=== PATIENT | male | born 1990 ===

== ENCOUNTER 2018-03-07 17:30 | Inpatient (IN) ==
[~2018-03-07 17:30] MED LIST: Etomidate Inj 20 MG/10 ML Ampul IV.PUSH ONE; Lidocaine 2% 100 MG/5 ML Syringe IV.PUSH ONE; Succinylcholine Inj 100 MG/5 ML Syringe IV.PUSH ONE
[2018-03-07] MEDS ORDERED: Diphtheria/Tetanus/Pertussis Vaccine Inj 0.5 ML Syringe IM ONE ×2 (17:35→20:00)
[2018-03-07] MEDS ORDERED: Propofol 1000 mg/100 ml Inj 1,000 MG/100 ML BOTTLE ONE (17:35)
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
[2018-03-07] MEDS ORDERED: Midazolam Inj 5 MG/ML 1 ML Vial ONE ×2 (17:56→18:41)
[2018-03-07 18:03] LABS: Baso # (Auto) 0.1 th/mm3 (0.0-0.2); Baso % (Auto) 0.6 % (0.0-2.0); Eos # (Auto) 0.1 th/mm3 (0.0-0.4); Eos % (Auto) 0.4 % (0.0-4.0); Hematocrit 50.6 % (39.0-51.0); Hemoglobin 17.2 gm/dL (13.0-17.0); Lymph # (Auto) 4.1 th/mm3 (1.0-4.8); Lymph % (Auto) 23.7 % (9.0-44.0); Mean Corpuscular HGB Conc 33.9 % (32.0-36.0); Mean Corpuscular Hemoglobin 33.3 pg (27.0-34.0); Mean Corpuscular Volume 98.1 fL (80.0-100.0); Mean Platelet Volume 8.2 fL (7.0-11.0); Mono # (Auto) 0.3 th/mm3 (0.0-0.9); Mono % (Auto) 1.9 % (0.0-8.0); Neut # (Auto) 12.7 th/mm3 (1.8-7.7); Neut % (Auto) 73.4 % (16.0-70.0); Platelet Count 201 th/mm3 (150-450); Red Blood Count 5.16 mil/mm3 (4.50-5.90); Red Cell Distribution Width 13.9 % (11.6-17.2); White Blood Count 17.3 th/mm3 (4.0-11.0)
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
[2018-03-07] MEDS ORDERED: Sodium Bicarbonate 8.4% Inj 50 MEQ/50 ML Syringe ONE (18:40)
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
[2018-03-07 19:02] LABS: Activated Partial Thrombo Time 25.3 sec (24.3-30.1); INR 1.2 Ratio
[2018-03-07 19:03] LABS: ABG Base Excess -11.6 mmol/L (-2-2); ABG PCO2 33 mmHg (38-42); ABG PO2 434 mmHg (61-120)
[2018-03-07] MEDS ORDERED: Bisacodyl 10 MG Supp RECTAL PRN (19:05)
[2018-03-07] MEDS ORDERED: Propofol 1000 mg/100 ml Inj 1,000 MG/100 ML BOTTLE IV.CONT PRN (19:05)
--- NOTE | 2018-03-07 19:12 | XR ---
EXAM DATE: 03/07/2018 6:40 PM EDT AGE/SEX: 89 years / Male INDICATIONS: Central line placement. CLINICAL DATA: This is the patient's subsequent encounter. Patient reports that signs and symptoms h ave been present for 1 day and indicates a pain score of Nonresponsive. MEDICAL/SURGICAL HISTORY: Non-responsive. Non-responsive. COMPARISON: [facility], CHEST 1V SINGLE AP, 03/07/2018. . FINDINGS: Stable ETT. Interval placement of left subclavian central line with tip in the central SVC. No signif icant pneumothorax. Lungs are clear. Cardiomediastinal contours are within normal limits. Remainder o f the exam is unchanged. CONCLUSION: 1. Stable ETT. 2. Left subclavian central line with tip in the central SVC without pneumothorax. Electronically signed by: Buddy Benitez MD 03/07/2018 7:11 PM EDT
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
[2018-03-07] MEDS ORDERED: ceFAZolin 2 GM Premix Inj 2 GM/100 ML BAG IV.SIG ONE (20:00)
[2018-03-07] MEDS: Sod Chloride 0.9% Inj 1,000 ML IV.CONT SCH (20:05)
[2018-03-07] MEDS: fentaNYL 10 mcg/mL Premix Drip 2,500 MCG/250 ML BAG IV.SIG PRN (20:06)
[2018-03-07 20:11] LABS: Eosinophils 2 % (0-4); Lymphocytes 34 % (9-44); Monocytes 3 % (0-8); Myelocytes 1 % (0-0)
[2018-03-07 20:12] LABS: Platelet Morphology Clumped (Normal)
[2018-03-07 20:16] LABS: Platelet Estimate Normal (Normal)
[2018-03-07] MEDS: Midazolam 50 MG/50 ML Inj 50 MG/50 ML BAG IV.CONT PRN (20:18)
[2018-03-07 20:36] LABS: ABG PCO2 35 mmHg (38-42); ABG PO2 234 mmHg (61-120)
[2018-03-07] MEDS ORDERED: Famotidine 20 MG Tablet PO SCH ×2 (21:00)
[2018-03-07] MEDS ORDERED: Famotidine PF Inj 20 MG/2 ML Vial IV.PUSH SCH (21:00)
[2018-03-07] MEDS ORDERED: Norepinephrine Inj 4 MG/4 ML Ampul ONE (21:18)
[2018-03-07] MEDS ORDERED: Norepinephrine Inj 4 MG in Sodium Chlor 0.9% Inj 246 ML IV.SIG PRN (21:31)
[2018-03-07] MEDS: Pantoprazole Inj 40 MG Vial IV.PUSH SCH (21:59)
[2018-03-07] MEDS ORDERED: Albumin Human 5% Inj 500 ML IV.SIG ONE (22:00)
[2018-03-07] MEDS: Senna/Docusate Sodium 8.6/50 MG Tablet PO SCH (22:01)
[2018-03-07] MEDS ORDERED: Sod Chloride 0.9% Inj 1,000 ML IV.SIG ONE (22:15)
[2018-03-07 22:34] LABS: Hematocrit 45.3 % (39.0-51.0); Hemoglobin 15.4 gm/dL (13.0-17.0)
[2018-03-07 22:55] LABS: Amphetamine Screen,Urine Neg (Neg); Barbiturate Screen,Urine Neg (Neg); Cannabinoid Screen,Urine Pos (Neg); Cocaine Screen,Urine Neg (Neg)
[2018-03-07 22:58] LABS: Opiate Screen,Urine Neg (Neg)
[2018-03-07 23:00] LABS: Bilirubin,Urine Negative (Negative); Clarity,Urine Clear (Clear); Color,Urine Straw (Yellw/Straw); Glucose,Urine (UA) 50 mg/dL (Negative); Hyaline Casts,Urine 1 /lpf (0-3); Leukocyte Esterase,Urine Negative (Negative); Mucus,Urine Few /lpf (Occasional); Nitrite,Urine Negative (Negative); Specific Gravity,Urine 1.019 (1.002-1.035); Squamous Epithelial Cell,Urine <1 /hpf (0-5)
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
[2018-03-08] MEDS: Sod Chloride 0.9% Inj 1,000 ML IV.CONT SCH ×2 (02:30→05:07)
[2018-03-08] MEDS ORDERED: Chlorhexidine Gluconate 2% 1 Pack (2 Cloths) TOPICAL PRN (04:00)
[2018-03-08] MEDS: Chlorhexidine Gluconate 2% 1 Pack (2 Cloths) TOPICAL SCH (04:29)
[2018-03-08] MEDS: Midazolam 50 MG/50 ML Inj 50 MG/50 ML BAG IV.CONT PRN ×3 (04:32→19:51)
[2018-03-08 05:39] LABS: Baso % (Auto) 0.2 % (0.0-2.0); Hematocrit 40.1 % (39.0-51.0); Hemoglobin 13.5 gm/dL (13.0-17.0); Lymph % (Auto) 7.1 % (9.0-44.0); Mean Corpuscular HGB Conc 33.7 % (32.0-36.0); Mean Corpuscular Hemoglobin 31.6 pg (27.0-34.0); Mean Corpuscular Volume 93.7 fL (80.0-100.0); Mean Platelet Volume 7.7 fL (7.0-11.0); Mono # (Auto) 1.6 th/mm3 (0.0-0.9); Mono % (Auto) 11.7 % (0.0-8.0); Platelet Count 215 th/mm3 (150-450); Red Blood Count 4.28 mil/mm3 (4.50-5.90); Red Cell Distribution Width 16.3 % (11.6-17.2); White Blood Count 13.6 th/mm3 (4.0-11.0)
[2018-03-08 05:56] LABS: ABG Base Excess -2.6 mmol/L (-2-2); ABG PCO2 36 mmHg (38-42); ABG PO2 77 mmHg (61-120)
[2018-03-08 06:14] LABS: Calcium 6.5 mg/dL (8.5-10.1); Carbon Dioxide 23.7 meq/L (21.0-32.0); Potassium 3.3 meq/L (3.5-5.1)
[2018-03-08 06:25] LABS: Total Protein 5.4 g/dL (6.4-8.2)
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
--- NOTE | 2018-03-08 09:44 | CT ---
EXAM DATE: 03/08/2018 9:37 AM EDT AGE/SEX: 89 years / Male INDICATIONS: Right hip fracture CLINICAL DATA: This is the patient's initial encounter. Patient reports that signs and symptoms have been present for 1 day and indicates a pain score of Nonresponsive. MEDICAL/SURGICAL HISTORY: Non-responsive. Non-responsive. RADIATION DOSE: . CTDI (mGy) ; Reconstructed from previous dataset, no dose COMPARISON: [facility] [place], CT ABDOMEN & PELVIS W CONTRAST, 03/07/2018. . TECHNIQUE: Multiple contiguous axial images were acquired using a multirow detector CT scanner witho ut contrast. Multiplanar reconstruction was performed in the sagittal and coronal planes. Using aut omated exposure control and adjustment of the mA and/or kV according to patient size, radiation dose was kept as low as reasonably achievable to obtain optimal diagnostic quality images. DICOM format i mage data is available electronically for review and comparison. FINDINGS: There is diastases of the right SI joint with a displaced fracture, comminuted of the posterior right iliac bone at the SI joint. This is seen best on axial image 16 through 20. There is a comminuted ac [place] displaced fracture left superior pubic ramus as well as a slightly displaced fracture of the infe rior pubic ramus on the left. Heavily comminuted fracturing of the acetabulum on the right is seen wi th multiple displaced fracture fragments. There is a hematoma along the right pelvic sidewall again s een. CONCLUSION: 1. Numerous pelvic fractures are noted as described above. Electronically signed by: Jj Quijano MD 03/08/2018 9:43 AM EDT
[2018-03-08] MEDS: Senna/Docusate Sodium 8.6/50 MG Tablet PO SCH ×2 (13:00→21:20)
[2018-03-08] MEDS: Oral Hygiene Kit OROPHARYNG SCH ×2 (13:01→19:45)
[2018-03-08] MEDS: Chlorhexidine 0.12% Oral Kit 15 ML UDC OROPHARYNG SCH ×2 (13:36→21:20)
[2018-03-08] MEDS: fentaNYL 10 mcg/mL Premix Drip 2,500 MCG/250 ML BAG IV.SIG PRN ×2 (13:40→21:43)
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
--- NOTE | 2018-03-08 16:06 | P.PNNS ---
Subjective Interval history: 03/08: intubated, mildly sedated but does open eyes. <Yolanda Fajardo - Last Filed: 03/08/18 16:01> Physical Exam Vital signs: Vital Signs 03/07/18 19:08 03/07/18 20:00 03/07/18 20:36 Temperature 100.2 F H Pulse Rate 132 H Respiratory Rate 32 H 19 16 Blood Pressure 114/52 L Pulse Oximetry 99 100 03/07/18 22:00 03/07/18 22:22 03/08/18 00:00 Temperature 100.2 F H Pulse Rate 124 H 136 H Respiratory Rate 16 16 Blood Pressure 108/66 Pulse Oximetry 100 100 03/08/18 01:51 03/08/18 02:00 03/08/18 04:00 Temperature 100.2 F H Pulse Rate 128 H 126 H Respiratory Rate 16 16 Blood Pressure 136/90 Pulse Oximetry 100 100 03/08/18 04:15 03/08/18 06:00 03/08/18 08:00 Temperature 99.7 F H Pulse Rate 135 H 128 H Respiratory Rate 16 16 Blood Pressure 135/85 Pulse Oximetry 94 L 100 03/08/18 08:43 03/08/18 09:00 03/08/18 10:00 Temperature Pulse Rate 128 H 130 H Respiratory Rate 16 Blood Pressure Pulse Oximetry 100 03/08/18 11:45 03/08/18 12:00 Temperature 99.7 F H Pulse Rate 119 H 122 H Respiratory Rate 16 18 Blood Pressure 140/90 Pulse Oximetry 100 100 Intake & Output 03/07/18 03/08/18 03/08/18 18:59 06:59 18:59 Intake Total 3500 / 3500 250 / 250 Output Total 1775 / 1775 Balance 1725 / 1725 250 / 250 Weight 73.1 kg Intake: IV 3500 / 3500 250 / 250 NS Inj 1,000 ML @ 150 mls/hr IV 1999 / 1999 .CONT .Q6H40M [facility] Rx#:[id number] Alburx 5% Inj 500 ML @ 250 mls/ 500 / 500 hr IV.SIG NOW ONE Rx#:[id number] NS Inj 1,000 ML @ 999 mls/hr IV 1000 / 1000 .SIG .Q1H1M ONE Rx#:[id number] fentaNYL 10 mcg/mL Premix Drip 250 / 250 2,500 mcg In 250 ml @ 50 MCG/HR 5 mls/hr IV.SIG TITRATE PRN Rx #:[id number] Output: Urine Amount (Catheter) 1475 / 1475 Indwelling Temp Sensing 1475 / 1475 Catheter Gastric Drainage 300 / 300 Orogastric Tube 300 / 300 Other: Weight On Admission 73.1 kg Narrative: GENERAL: Intubated SKIN: Warm and dry. Multiple skin abrasions HEAD: Normocephalic, traumatic injuries with dressing EYES: No scleral icterus. No injection or drainage. NECK: Supple, trachea midline. No JVD or lymphadenopathy. CARDIOVASCULAR: Regular rate and rhythm without murmurs, gallops, or rubs. RESPIRATORY: mechanically ventilated GASTROINTESTINAL: Abdomen soft, non-tender, nondistended. MUSCULOSKELETAL: No cyanosis, or edema. BACK: Nontender without obvious deformity. No CVA tenderness. Neuro: sedated on versed and fentanyl drips. pupils equal. not following commands to motor testing but responds to pain stimuli. - Urinary Catheter Management Indwelling Temp Sensing Catheter Cath placed during this visit: yes Reason for continuing: Other continuation reason Insertion date: 03/07/18 <Yolanda Fajardo - Last Filed: 03/08/18 16:01> Vital signs: Vital Signs 03/07/18 19:08 03/07/18 20:00 03/07/18 20:36 Temperature 100.2 F H Pulse Rate 132 H Respiratory Rate 32 H 19 16 Blood Pressure 114/52 L Pulse Oximetry 99 100 03/07/18 22:00 03/07/18 22:22 03/08/18 00:00 Temperature 100.2 F H Pulse Rate 124 H 136 H Respiratory Rate 16 16 Blood Pressure 108/66 Pulse Oximetry 100 100 03/08/18 01:51 03/08/18 02:00 03/08/18 04:00 Temperature 100.2 F H Pulse Rate 128 H 126 H Respiratory Rate 16 16 Blood Pressure 136/90 Pulse Oximetry 100 100 03/08/18 04:15 03/08/18 06:00 03/08/18 08:00 Temperature 99.7 F H Pulse Rate 135 H 128 H Respiratory Rate 16 16 Blood Pressure 135/85 Pulse Oximetry 94 L 100 03/08/18 08:43 03/08/18 09:00 03/08/18 10:00 Temperature Pulse Rate 128 H 130 H Respiratory Rate 16 Blood Pressure Pulse Oximetry 100 03/08/18 11:45 03/08/18 12:00 Temperature 99.7 F H Pulse Rate 119 H 122 H Respiratory Rate 16 18 Blood Pressure 140/90 Pulse Oximetry 100 100 Intake & Output 03/07/18 03/08/18 03/08/18 18:59 06:59 18:59 Intake Total 3500 / 3500 250 / 250 Output Total 1775 / 1775 Balance 1725 / 1725 250 / 250 Weight 73.1 kg Intake: IV 3500 / 3500 250 / 250 NS Inj 1,000 ML @ 150 mls/hr IV 1999 / 1999 .CONT .Q6H40M [facility] Rx#:[id number] Alburx 5% Inj 500 ML @ 250 mls/ 500 / 500 hr IV.SIG NOW ONE Rx#:[id number] NS Inj 1,000 ML @ 999 mls/hr IV 1000 / 1000 .SIG .Q1H1M ONE Rx#:[id number] fentaNYL 10 mcg/mL Premix Drip 250 / 250 2,500 mcg In 250 ml @ 50 MCG/HR 5 mls/hr IV.SIG TITRATE PRN Rx #:[id number] Output: Urine Amount (Catheter) 1475 / 1475 Indwelling Temp Sensing 1475 / 1475 Catheter Gastric Drainage 300 / 300 Orogastric Tube 300 / 300 Other: Weight On Admission 73.1 kg Narrative: The patient is intubated and sedated. Localizes to painful stimuli with his upper extremities. Cranial Nerves: Pupils equal, 3 mm round, reactive to light. Eyes appear conjugated. There was no nystagmus, no papilledema. Face musculature appeared symmetrical at rest. Face sensation, olfaction, and hearing cannot be adequately assessed due to the patient's neurological condition. The patient has a corneal reflex. The patient has a gag reflex. The sternocleidomastoid and trapezius were symmetrical. Cervical Spine: The patient's neck is soft, supple, without nuchal rigidity. Motor: localizes to pain with both upper extremities, splint in his left lower extremity Reflexes: Deep tendon reflexes are 2+ and symmetrical in the biceps, triceps, and brachioradialis, bilaterally, in the upper extremities. In the lower extremities, the patellar and ankles are 2+, bilaterally. There is a bilateral plantar flexion response. There is no clonus or other abnormal reflexes noted. Sensory: On examination there there is response to painful stimuli, localizing with both upper and lower extremities. Cerebellar: Examination cannot be adequately assessed due to the patient's neurological condition. Lungs: clear Heart: Regular rhythm and rate Skin: warm and dry - Urinary Catheter Management Indwelling Temp Sensing Catheter Cath placed during this visit: no <Shukri Vieyra - Last Filed: 03/08/18 17:38> Assessment and Plan - Plan Impression: young adult male with closed head injury Face CT 03/07/18 17:39 CONCLUSION: 1. Acute fractures involving the right zygomatic arch, squamous portion of the right temporal bone and fracture involving the base of the pterygoid plates on the right. There is opacification of the right sphenoid sinus and small fluid level within left maxillary sinus. Minimal pneumocephalus is noted within the anterior middle cranial fossa on the right. Head CT 03/07/18 17:39 CONCLUSION: 1. No acute intracranial abnormality. 2. There is no acute fracture involving the right zygomatic arch. 3. Subgaleal hematoma along the right frontoparietal skull. 4. Opacification of the right sphenoid sinus is noted. 5. Small fluid level is noted within the left maxillary sinus. Lumbar Spine CT 03/07/18 17:39 CONCLUSION: 1. No acute fracture or spinal listhesis of the lumbar spine. 2. Acute comminuted fracture involving the right iliac bone with widening of the right sacroiliac joint. 3. Tiny 2 mm calcified nonobstructing mid pole left renal calculus. Thoracic Spine CT 03/07/18 17:39 CONCLUSION: 1. No acute fracture or subluxation of the thoracic spine. Plan: nonsurgical management close neuro checks cont critical care management sedation and vent weaning as tolerated OMFS for facial fractures <Yolanda Fajardo - Last Filed: 03/08/18 16:01> - Plan Young male with Left temporoparietal subarachnoid hemorrhage Right zygoma and temporal bone fracture with pneumocephalus Sphenoid fracture Right hepatic lobe grade 3 laceration with a large hematoma Right adrenal contusion and retroperitoneal bleeding in the infra hepatic vena cava area Right comminuted acetabular fracture Left hip dislocation with closed reduction Bilateral superior and inferior comminuted displaced rami pubis fractures Right iliac fracture disassociation of sacroiliac joint Left temporoparietal subarachnoid hemorrhage. Continue neuro checks. Follow up CT brain or MRI Right zygoma and temporal bone fracture with pneumocephalus. HOB elevation 30 degrees. Watch for CSF leak Sphenoid fracture. Non operative treatment. Watch for CSF leak Right hepatic lobe grade 3 laceration with a large hematoma. FOllow up H and H. Transfuse as needed Right adrenal contusion and retroperitoneal bleeding in the infra hepatic vena cava area. FOllow up H and H. Transfuse as needed\ Right comminuted acetabular fracture. Left hip dislocation with closed reduction. Defer to orthopedics Bilateral superior and inferior comminuted displaced rami pubis fractures. FOllow up H and H. Transfuse as needed Right iliac fracture disassociation of sacroiliac joint. Consult orthopedcs Respiratory failure: Continue aggressive pulmonary toilette, nasotracheal suction, and breathing treatments with nebulizers. PT and OT Renal: Continue to monitor closely urine output, BUN and creatinine Endocrine: Continue to Monitor serial Acu checks and SSI as needed in detail ID continue to monitor for signs of infection Continue Protonix for stress ulcer prophylaxis Continue Paul hose and SCD's for DVT prophylaxis Further recommendations will be provided depending on the patient's clinical evaluation and follow up studies. The exam, history, and the medical decision-making described in the above note were completed with the assistance of the mid-level provider. I reviewed and agree with the findings presented. I attest that I had a [id number] encounter with the patient on the same day, and personally performed and documented my assessment and findings in the medical record. <Shukri Vieyra - Last Filed: 03/08/18 17:38> Procedures - Arterial Line Size (Gauge): 18 <Yolanda Fajardo - Last Filed: 03/08/18 16:01>
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
[2018-03-08] MEDS ORDERED: Lidocaine 1% Inj 50 ML Vial ONE (17:04)
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
[2018-03-08 18:40] LABS: Hemoglobin 13.3 gm/dL (13.0-17.0)
[2018-03-08] MEDS ORDERED: Magnesium Sulfate Inj 4 GM in Sodium Chlor 0.9% Inj 92 ML IV.SIG PRN (20:41)
[2018-03-08] MEDS ORDERED: Potassium Chloride 25 MEQ Effervescent Tablet PO PRN (20:41)
[2018-03-08] MEDS ORDERED: Magnesium Oxide 400 MG Tablet PO PRN (20:41)
[2018-03-08] MEDS ORDERED: Magnesium Sulfate Inj 2 GM in Sodium Chlor 0.9% Inj 96 ML IV.SIG PRN (20:41)
[2018-03-08] MEDS ORDERED: Potassium Chlor 40 mEq Premix 40 MEQ/100 ML PIGGYBACK IV.SIG PRN (20:41)
[2018-03-08] MEDS ORDERED: Sodium Phosphate Inj 30 MMOL in Sodium Chlor 0.9% Inj 250 ML IV.SIG PRN (20:41)
[2018-03-08] MEDS ORDERED: Potassium Phosphate 500 MG Soluble Tablet PO PRN ×2 (20:41)
[2018-03-08] MEDS ORDERED: Potassium Chlor 20 mEq Premix 20 MEQ/100 ML PIGGYBACK IV.SIG PRN ×2 (20:41)
[2018-03-08] MEDS ORDERED: Potassium Phosphate Inj 30 MMOL in Sodium Chlor 0.9% Inj 250 ML IV.SIG PRN (20:41)
[2018-03-08] MEDS: Pantoprazole Inj 40 MG Vial IV.PUSH SCH (21:20)
--- NOTE | 2018-03-08 21:28 | ECG ---
Date Performed: 03/07/2018 Time Performed: 20:33:58 PTAGE: 89 years EKG: Sinus tachycardia. Short DE interval Borderline ECG NO PREVIOUS TRACING DOCTOR: Thompson Brice Interpretating Date/Time 03/08/2018 21:27:32
[2018-03-08] MEDS: Potassium Chlor 40 mEq Premix 40 MEQ/100 ML PIGGYBACK IV.SIG PRN (21:41)
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
[2018-03-09] MEDS: Oral Hygiene Kit OROPHARYNG SCH ×3 (00:02→18:20)
[2018-03-09] MEDS: Chlorhexidine Gluconate 2% 1 Pack (2 Cloths) TOPICAL SCH (03:33)
[2018-03-09] MEDS: Midazolam 50 MG/50 ML Inj 50 MG/50 ML BAG IV.CONT PRN ×3 (03:33→20:02)
--- NOTE | 2018-03-09 03:50 | XR ---
EXAM DATE: 03/09/2018 3:45 AM EDT AGE/SEX: 89 years / Male INDICATIONS: Shortness of breath CLINICAL DATA: This is the patient's subsequent encounter. Patient reports that signs and symptoms h ave been present for 2 days and indicates a pain score of Nonresponsive. MEDICAL/SURGICAL HISTORY: Non-responsive. Non-responsive. COMPARISON: [facility] – [place], CHEST 1V SINGLE AP, 03/07/2018. . FINDINGS: Patchy parenchymal consolidation developing of the right base. Left lung remains clear. No pleural ef fusion or pneumothorax demonstrated. Heart size stable, within normal limits. Endotracheal tube tip is approximately 4.3 cm above the harsha. Nasogastric tube has its tip in the s tomach, sidehole near the GE junction. There is a left subclavian central venous catheter with tip in the superior vena cava. CONCLUSION: Patchy parenchymal consolidation developing of the right base. Electronically signed by: Sridhar Slater MD 03/09/2018 3:48 AM EDT
[2018-03-09 05:24] LABS: Baso % (Auto) 0.2 % (0.0-2.0); Eos % (Auto) 0.1 % (0.0-4.0); Hematocrit 34.5 % (39.0-51.0); Hemoglobin 11.7 gm/dL (13.0-17.0); Lymph # (Auto) 1.1 th/mm3 (1.0-4.8); Lymph % (Auto) 8.7 % (9.0-44.0); Mean Corpuscular Volume 93.9 fL (80.0-100.0); Mean Platelet Volume 7.8 fL (7.0-11.0); Neut # (Auto) 10.3 th/mm3 (1.8-7.7); Platelet Count 164 th/mm3 (150-450); Red Blood Count 3.67 mil/mm3 (4.50-5.90); Red Cell Distribution Width 15.8 % (11.6-17.2); White Blood Count 12.4 th/mm3 (4.0-11.0)
[2018-03-09 05:53] LABS: Calcium 7.6 mg/dL (8.5-10.1); Carbon Dioxide 27.9 meq/L (21.0-32.0)
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
[2018-03-09] MEDS: Chlorhexidine 0.12% Oral Kit 15 ML UDC OROPHARYNG SCH ×2 (09:43→20:02)
[2018-03-09] MEDS: Senna/Docusate Sodium 8.6/50 MG Tablet PO SCH (09:45)
[2018-03-09] MEDS: fentaNYL 10 mcg/mL Premix Drip 2,500 MCG/250 ML BAG IV.SIG PRN ×2 (10:10→21:16)
--- NOTE | 2018-03-09 11:27 | P.DIET ---
Nutritional Evaluation Type of nutrition evaluation: initial Nutrition consult regarding: Tube Feeding Objective - Diagnosis Liver laceration, pelvic fx, subarachnoid hemorrhage - Objective % IBW: 115 (IBW = 142#) Body Weight Used for Calculations: Actual (74.6 kg) Energy Needs - Lower Range (kCal/kg): 28 Energy Needs - Upper Range (kCal/kg): 32 Lower Limit kCal/kg (kCals): 2,089 Upper Limit kCal/kg (kCals): 2,387 Lower Limit Protein Factor (Grams per Kg): 1.2 Upper Limit Protein Factor (Grams per Kg): 1.6 Lower Protein Needs (Protein): 90 Upper Protein Needs (Protein): 119 Dietitian Reviewed in Medical Record: Curent medications, Intake & Output, Labs , Medical history, Tube feeding Assessment Assessment: Pt is at high nutrition risk 2' to trauma and the need for TFing. Current order is for Jevity 1.5 with goal rate of 55 mls/hr. Recommend Jevity 1.5 @ 65 mls/hr to provide 2340 kcals, 100 gms protien and 1186 mls of free water. Recommendations: Jevity 1.5 @ 65 mls/hr goal Dietitian to Monitor: Lab values, Intake & Output, Tube feeding tolerance, Weight change, Medical course
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
[2018-03-09] MEDS: Pantoprazole Inj 40 MG Vial IV.PUSH SCH (20:02)
[2018-03-10] MEDS: Senna/Docusate Sodium 8.6/50 MG Tablet PO SCH ×3 (01:00→21:08)
[2018-03-10] MEDS: Oral Hygiene Kit OROPHARYNG SCH ×4 (01:03→16:00)
[2018-03-10] MEDS: Midazolam 50 MG/50 ML Inj 50 MG/50 ML BAG IV.CONT PRN (01:04)
[2018-03-10 04:27] LABS: Baso % (Auto) 0.5 % (0.0-2.0); Eos # (Auto) 0.1 th/mm3 (0.0-0.4); Eos % (Auto) 0.6 % (0.0-4.0); Hematocrit 26.6 % (39.0-51.0); Hemoglobin 9.2 gm/dL (13.0-17.0); Lymph # (Auto) 1.5 th/mm3 (1.0-4.8); Lymph % (Auto) 15.8 % (9.0-44.0); Mean Corpuscular HGB Conc 34.6 % (32.0-36.0); Mean Corpuscular Hemoglobin 32.9 pg (27.0-34.0); Mean Corpuscular Volume 95.2 fL (80.0-100.0); Mean Platelet Volume 7.8 fL (7.0-11.0); Mono # (Auto) 0.5 th/mm3 (0.0-0.9); Mono % (Auto) 5.7 % (0.0-8.0); Neut # (Auto) 7.3 th/mm3 (1.8-7.7); Neut % (Auto) 77.4 % (16.0-70.0); Platelet Count 134 th/mm3 (150-450); Red Cell Distribution Width 15.4 % (11.6-17.2); White Blood Count 9.4 th/mm3 (4.0-11.0)
[2018-03-10 04:53] LABS: Anion Gap 6 meq/L (5-15); Blood Urea Nitrogen 12 mg/dL (7-18); Calcium 7.8 mg/dL (8.5-10.1); Carbon Dioxide 27.7 meq/L (21.0-32.0); Chloride 117 meq/L (98-107); Glomerular Filtration Rate Greater Than 89 mL/min (>89); Glucose,Random 108 mg/dL (74-106); Potassium 3.3 meq/L (3.5-5.1); Sodium 151 meq/L (136-145)
[2018-03-10 06:09] LABS: ABG Base Excess 1.5 mmol/L (-2-2); ABG PCO2 32 mmHg (38-42); ABG PO2 118 mmHg (61-120)
--- NOTE | 2018-03-10 06:33 | P.PNOP ---
Subjective Interval history: Patient is intubated and sedated. He is in stable condition Physical Exam Vital signs: Vital Signs 03/09/18 07:36 03/09/18 08:00 03/09/18 09:00 Temperature 100.4 F H Pulse Rate 113 H 114 H 116 H Respiratory Rate 16 16 Blood Pressure 143/87 H Pulse Oximetry 100 100 03/09/18 10:00 03/09/18 12:00 03/09/18 12:28 Temperature 100.6 F H Pulse Rate 120 H 115 H Respiratory Rate 16 16 Blood Pressure 130/85 Pulse Oximetry 100 97 03/09/18 13:55 03/09/18 14:00 03/09/18 15:33 Temperature Pulse Rate 112 H 116 H Respiratory Rate 16 16 Blood Pressure Pulse Oximetry 100 03/09/18 16:00 03/09/18 18:00 03/09/18 19:54 Temperature 100.4 F H Pulse Rate 118 H 111 H 99 H Respiratory Rate 16 16 Blood Pressure 143/85 H Pulse Oximetry 100 03/09/18 19:57 03/09/18 20:00 03/09/18 22:00 Temperature 100 F H Pulse Rate 114 H 98 H Respiratory Rate 17 16 Blood Pressure 137/74 Pulse Oximetry 100 100 03/09/18 23:57 03/09/18 23:59 03/10/18 00:00 Temperature 100.4 F H Pulse Rate 97 H 117 H Respiratory Rate 17 17 16 Blood Pressure 128/75 Pulse Oximetry 100 03/10/18 01:00 03/10/18 02:00 03/10/18 03:36 Temperature Pulse Rate 90 Respiratory Rate 16 16 Blood Pressure Pulse Oximetry 100 03/10/18 04:00 Temperature 99.5 F Pulse Rate 86 Respiratory Rate 16 Blood Pressure 108/67 Pulse Oximetry Intake & Output 03/09/18 03/09/18 03/10/18 06:59 18:59 06:59 Intake Total 1400 / 1400 2450 / 2450 50 / 50 Output Total 425 / 425 450 / 450 Balance 975 / 975 1999 / 1999 50 / 50 Weight 74.6 kg Intake: IV 1400 / 1400 2450 / 2450 50 / 50 LR 1000 mL Inj 1,000 ML @ 84 1000 / 1000 1000 / 1000 mls/hr IV.CONT .[id number] [facility] Rx# :[id number] Versed Inj 50 mg In 50 ml @ 2 50 / 50 100 / 100 50 / 50 MG/HR 2 mls/hr IV.CONT TITRATE PRN Rx#:[id number] Ofirmev Inj 1,000 mg In 100 ml 100 / 100 @ 400 mls/hr IV.SIG Q6H PRN Rx# :[id number] LR 1000 mL Inj 1,000 ML @ Wide 1000 / 1000 Open IV.SIG BOLUS ONE Rx#: [id number] KCl 40 mEq Premix Inj 40 meq In 100 / 100 100 ml @ 25 mls/hr IV.SIG UNSCH PRN Rx#:[id number] fentaNYL 10 mcg/mL Premix Drip 250 / 250 250 / 250 0 / 0 2,500 mcg In 250 ml @ 50 MCG/HR 5 mls/hr IV.SIG TITRATE PRN Rx #:[id number] Output: Urine Amount (Catheter) 225 / 225 350 / 350 Indwelling Temp Sensing 225 / 225 350 / 350 Catheter Gastric Drainage 200 / 200 100 / 100 Orogastric Tube 200 / 200 100 / 100 Narrative: Bilateral upper extremities: No laxity or crepitus range of motion shoulder elbow wrist. He is in restraints. Good capillary refills and distal pulses Left lower extremity: Examination reveals no laxity or crepitus range of motion of hip knee or ankle. Distal pulses are intact and capillary refills. Right lower extremity: Multiple abrasions. Continuing to heal in well. No laxity of knee or ankle. Intact distal pulses - Urinary Catheter Management Indwelling Temp Sensing Catheter Cath placed during this visit: yes Reason for continuing: Other continuation reason Insertion date: 03/07/18 Results - Labs CBC & Chem 7: 03/10/18 04:15 03/10/18 04:15 Laboratory Results - last 24 hr 03/09/18 03/09/18 03/10/18 17:15 18:30 04:15 WBC 9.4 RBC 2.80 L Hgb 9.2 L D Hct 26.6 L MCV 95.2 MCH 32.9 MCHC 34.6 RDW 15.4 Plt Count 134 L MPV 7.8 Neut % (Auto) 77.4 H Lymph % (Auto) 15.8 [place] % (Auto) 5.7 Eos % (Auto) 0.6 Baso % (Auto) 0.5 Neut # (Auto) 7.3 Lymph # (Auto) 1.5 [place] # (Auto) 0.5 Eos # (Auto) 0.1 Baso # (Auto) 0.0 WBC Differential . Differential Comment Auto diff final Puncture Site Patient Temperature O2 Saturation ABG pH ABG pCO2 ABG pO2 ABG HCO3 ABG O2 Content ABG Base Excess ABG Methemoglobin Han Test Hemoglobin Carboxyhemoglobin O2 Delivery Device Vent Setting Inspired O2 Critical Value Sodium Potassium Chloride Carbon Dioxide Anion Gap BUN Creatinine Estimated GFR Random Glucose Calcium Blood Type O Positive Antibody Screen Negative MTS Gel Crossmatch See Detail See Detail Bld Prod Order Comment Cancelled 03/10/18 03/10/18 04:15 05:48 WBC RBC Hgb Hct MCV MCH MCHC RDW Plt Count MPV Neut % (Auto) Lymph % (Auto) [place] % (Auto) Eos % (Auto) Baso % (Auto) Neut # (Auto) Lymph # (Auto) [place] # (Auto) Eos # (Auto) Baso # (Auto) WBC Differential Differential Comment Puncture Site Art line Patient Temperature 98.6 O2 Saturation 97 ABG pH 7.50 H ABG pCO2 32 L ABG pO2 118 ABG HCO3 25 ABG O2 Content 12.8 ABG Base Excess 1.5 ABG Methemoglobin 1.0 Han Test Present Hemoglobin 9.2 L Carboxyhemoglobin 1.7 O2 Delivery Device Ventilator Vent Setting Ac Inspired O2 30 Critical Value No Sodium 151 H Potassium 3.3 L Chloride 117 H Carbon Dioxide 27.7 Anion Gap 6 BUN 12 Creatinine 0.66 Estimated GFR Greater than 89 Random Glucose 108 H Calcium 7.8 L Blood Type Antibody Screen MTS Gel Crossmatch Bld Prod Order Comment Assessment and Plan - Problem List (1) Closed right acetabular fracture Code(s): S32.401A - Unspecified fracture of right acetabulum, initial encounter for closed fracture Status: Acute (2) Closed pelvic fracture Code(s): S32.9XXA - Fracture of unspecified parts of lumbosacral spine and pelvis, initial encounter for closed fracture Status: Acute Qualifiers: Encounter type: initial encounter Pelvic bone location: unspecified part of pelvis Qualified Code(s): S32.9XXA - Fracture of unspecified parts of lumbosacral spine and pelvis, initial encounter for closed fracture - Assessment and Plan Right acetabulum fracture with reduced location of hip. Right posterior ilium fractures with SI joint disruption Alejandra's traction ordered to right leg SCDs and THOR fall for DVT prophylaxis N.p.o. and hold Lovenox Consents are signed Surgery this morning Physical therapy will be consulted postoperatively Continue critical care
[2018-03-10] MEDS: Potassium Chlor 40 mEq Premix 40 MEQ/100 ML PIGGYBACK IV.SIG PRN (06:35)
[2018-03-10] MEDS: fentaNYL 10 mcg/mL Premix Drip 2,500 MCG/250 ML BAG IV.SIG PRN ×2 (07:41→23:11)
[2018-03-10] MEDS: Chlorhexidine 0.12% Oral Kit 15 ML UDC OROPHARYNG SCH ×2 (07:41→21:06)
[2018-03-10] MEDS ORDERED: Tranexamic Acid Inj 0 MG in Sodium Chlor 0.9% Inj 100 ML IV.SIG SCH (08:00)
[2018-03-10] MEDS ORDERED: SODIUM CHLOR 0.9% IV.SIG SCH (08:00)
[2018-03-10] MEDS ORDERED: TRANEXAMIC ACID IV.SIG SCH (08:00)
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
[2018-03-10] MEDS ORDERED: Heparin - SQ 10,000 UNITS/ML Vial ONE (09:16)
[2018-03-10] MEDS ORDERED: fentaNYL Citrate Inj 100 MCG/2 ML Ampul ONE (09:29)
[2018-03-10] MEDS ORDERED: HYDROmorphone PF Inj 2 MG/ML Vial ONE (09:30)
[2018-03-10] MEDS ORDERED: fentaNYL Citrate Inj 250 MCG/5 ML Ampul ONE (09:30)
[2018-03-10] MEDS ORDERED: Albumin Human 5% Inj 500 ML IV.SIG ONE (09:31)
[2018-03-10] MEDS ORDERED: Famotidine PF Inj 20 MG/2 ML Vial ONE (09:32)
[2018-03-10] MEDS ORDERED: Tobramycin Sulfate 1,200 MG Vial (for ortho/sterile core) OTHER ONE (10:49)
[2018-03-10] MEDS ORDERED: RASS Change Order OTHER ONE (11:00)
[2018-03-10] MEDS ORDERED: Post-op Orders (for Pharmacy) OTHER STA (13:16)
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
[2018-03-10] MEDS: Propofol 1000 mg/100 ml Inj 1,000 MG/100 ML BOTTLE IV.CONT PRN ×2 (14:20→23:09)
[2018-03-10] MEDS ORDERED: Vancomycin Consult Pharmacy 1 EACH OTHER SCH (14:30)
--- NOTE | 2018-03-10 14:35 | P.PNOP ---
Subjective Interval history: Transferred back to ICU in stable condition Physical Exam Vital signs: Vital Signs 03/09/18 15:33 03/09/18 16:00 03/09/18 18:00 Temperature 100.4 F H Pulse Rate 118 H 111 H Respiratory Rate 16 16 Blood Pressure 143/85 H Pulse Oximetry 100 100 03/09/18 19:54 03/09/18 19:57 03/09/18 20:00 Temperature 100 F H Pulse Rate 99 H 114 H Respiratory Rate 16 17 16 Blood Pressure 137/74 Pulse Oximetry 100 100 03/09/18 22:00 03/09/18 23:57 03/09/18 23:59 Temperature Pulse Rate 98 H 97 H Respiratory Rate 17 17 Blood Pressure Pulse Oximetry 100 03/10/18 00:00 03/10/18 01:00 03/10/18 02:00 Temperature 100.4 F H Pulse Rate 117 H 90 Respiratory Rate 16 16 Blood Pressure 128/75 Pulse Oximetry 03/10/18 03:36 03/10/18 04:00 03/10/18 06:00 Temperature 99.5 F Pulse Rate 86 85 Respiratory Rate 16 16 Blood Pressure 108/67 Pulse Oximetry 100 03/10/18 07:52 03/10/18 08:00 03/10/18 08:17 Temperature 100.2 F H Pulse Rate 88 93 H Respiratory Rate 16 16 16 Blood Pressure 116/75 Pulse Oximetry 03/10/18 09:00 03/10/18 10:00 03/10/18 14:24 Temperature Pulse Rate 93 H 81 Respiratory Rate 18 Blood Pressure Pulse Oximetry 100 Intake & Output 03/09/18 03/10/18 03/10/18 18:59 06:59 18:59 Intake Total 2450 / 2450 1050 / 1050 3700 / 3700 Output Total 450 / 450 750 / 750 1200 / 1200 Balance 2000 / 2000 300 / 300 2500 / 2500 Weight 81.5 kg Intake: IV 2450 / 2450 1050 / 1050 2400 / 2400 LR 1000 mL Inj 1,000 ML @ 84 1000 / 1000 1000 / 1000 mls/hr IV.CONT .[id number] [facility] Rx# :[id number] Versed Inj 50 mg In 50 ml @ 2 100 / 100 50 / 50 50 / 50 MG/HR 2 mls/hr IV.CONT TITRATE PRN Rx#:[id number] Ofirmev Inj 1,000 mg In 100 ml 100 / 100 @ 400 mls/hr IV.SIG Q6H PRN Rx# :[id number] LR 1000 mL Inj 1,000 ML @ Wide 1000 / 1000 1000 / 1000 Open IV.SIG BOLUS ONE Rx#: [id number] KCl 40 mEq Premix Inj 40 meq In 100 / 100 100 ml @ 25 mls/hr IV.SIG UNSCH PRN Rx#:[id number] fentaNYL 10 mcg/mL Premix Drip 250 / 250 0 / 0 250 / 250 2,500 mcg In 250 ml @ 50 MCG/HR 5 mls/hr IV.SIG TITRATE PRN Rx #:[id number] Anesthesia Amount 1300 / 1300 Output: Urine 300 / 300 Estimated Blood Loss 1000 / 1000 Urine Amount (Catheter) 350 / 350 350 / 350 200 / 200 200 200 / 200 Indwelling Temp Sensing 350 / 350 350 / 350 Catheter Gastric Drainage 100 / 100 100 / 100 Orogastric Tube 100 / 100 100 / 100 Other: # Bowel Movements 0 Narrative: Right lower extremity: Clean dry dressings intact. Bacitracin over the road rash. Intact distal pulses good capillary refill - Urinary Catheter Management Indwelling Temp Sensing Catheter Cath placed during this visit: yes Reason for continuing: Other continuation reason Insertion date: 03/07/18 200 Cath placed during this visit: no Results - Labs CBC & Chem 7: 03/10/18 04:15 03/10/18 04:15 Laboratory Results - last 24 hr 03/07/18 03/09/18 03/09/18 17:57 17:15 18:30 WBC RBC Hgb Hct MCV MCH MCHC RDW Plt Count MPV Neut % (Auto) Lymph % (Auto) Lewis % (Auto) Eos % (Auto) Baso % (Auto) Neut # (Auto) Lymph # (Auto) Lewis # (Auto) Eos # (Auto) Baso # (Auto) WBC Differential Differential Comment Puncture Site Patient Temperature O2 Saturation ABG pH ABG pCO2 ABG pO2 ABG HCO3 ABG O2 Content ABG Base Excess ABG Methemoglobin Han Test Hemoglobin Carboxyhemoglobin O2 Delivery Device Vent Setting Inspired O2 Critical Value Sodium Potassium Chloride Carbon Dioxide Anion Gap BUN Creatinine Estimated GFR Random Glucose Calcium Blood Type O Positive Antibody Screen Negative MTS Gel Crossmatch See Detail See Detail See Detail Bld Prod Order Comment Cancelled 03/10/18 03/10/18 03/10/18 04:15 04:15 05:48 WBC 9.4 RBC 2.80 L Hgb 9.2 L D Hct 26.6 L MCV 95.2 MCH 32.9 MCHC 34.6 RDW 15.4 Plt Count 134 L MPV 7.8 Neut % (Auto) 77.4 H Lymph % (Auto) 15.8 Lewis % (Auto) 5.7 Eos % (Auto) 0.6 Baso % (Auto) 0.5 Neut # (Auto) 7.3 Lymph # (Auto) 1.5 Lewis # (Auto) 0.5 Eos # (Auto) 0.1 Baso # (Auto) 0.0 WBC Differential . Differential Comment Auto diff final Puncture Site Art line Patient Temperature 98.6 O2 Saturation 97 ABG pH 7.50 H ABG pCO2 32 L ABG pO2 118 ABG HCO3 25 ABG O2 Content 12.8 ABG Base Excess 1.5 ABG Methemoglobin 1.0 Han Test Present Hemoglobin 9.2 L Carboxyhemoglobin 1.7 O2 Delivery Device Ventilator Vent Setting Ac Inspired O2 30 Critical Value No Sodium 151 H Potassium 3.3 L Chloride 117 H Carbon Dioxide 27.7 Anion Gap 6 BUN 12 Creatinine 0.66 Estimated GFR Greater than 89 Random Glucose 108 H Calcium 7.8 L Blood Type Antibody Screen MTS Gel Crossmatch Bld Prod Order Comment Assessment and Plan - Problem List (1) Closed right acetabular fracture Code(s): S32.401A - Unspecified fracture of right acetabulum, initial encounter for closed fracture Status: Acute (2) Closed pelvic fracture Code(s): S32.9XXA - Fracture of unspecified parts of lumbosacral spine and pelvis, initial encounter for closed fracture Status: Acute Qualifiers: Encounter type: initial encounter Pelvic bone location: unspecified part of pelvis Qualified Code(s): S32.9XXA - Fracture of unspecified parts of lumbosacral spine and pelvis, initial encounter for closed fracture - Assessment and Plan Right acetabulum fracture and right sacroiliac joint open reduction internal fixation. Left pubic rami fracture nonoperative treatment POD 0 PT -toe-touch weightbearing right lower extremity with no active leg lifts or quad sets Left lower extremity 50% weightbearing for transfers on SCDs and THOR hose for DVT prophylaxis Radiation scheduled either today or tomorrow to help avoid significant heterotrophic ossification Daily dressing changes beginning POD 2 with Xeroform over incisions. Bacitracin over all road rash Continue critical care
--- NOTE | 2018-03-10 14:52 | XR ---
EXAM DATE: 03/10/2018 2:50 PM EDT AGE/SEX: 28 years / Male INDICATIONS: Evaluate endotracheal tube placement. CLINICAL DATA: This is the patient's initial encounter. Patient reports that signs and symptoms have been present for 1 day and indicates a pain score of Nonresponsive. MEDICAL/SURGICAL HISTORY: Non-responsive. Non-responsive. COMPARISON: C, CHEST 1V SINGLE AP, 03/09/2018. . FINDINGS: The cardiac silhouette is normal in transverse diameter. Endotracheal tube is in good position above the harsha. A left sided subclavian vein catheter is in place without pneumothorax with its tip in th e superior vena cava. There is left lower lobe atelectasis versus pneumonia. This is new when compar ed with the prior exam. CONCLUSION: Satisfactory position of endotracheal tube as above. Left lower lobe atelectasis versus pneumonia. This is new when compared with the prior exam. Electronically signed by: Donny Rodriguez MD 03/10/2018 2:51 PM EDT
[2018-03-10 14:56] LABS: Hematocrit 25.7 % (39.0-51.0); Hemoglobin 9.1 gm/dL (13.0-17.0); Mean Corpuscular HGB Conc 35.2 % (32.0-36.0); Mean Corpuscular Hemoglobin 33.3 pg (27.0-34.0); Mean Corpuscular Volume 94.6 fL (80.0-100.0); Mean Platelet Volume 8.1 fL (7.0-11.0); Platelet Count 131 th/mm3 (150-450); Red Blood Count 2.72 mil/mm3 (4.50-5.90); Red Cell Distribution Width 15.1 % (11.6-17.2); White Blood Count 10.8 th/mm3 (4.0-11.0)
--- NOTE | 2018-03-10 15:19 | XR ---
EXAM DATE: 03/10/2018 2:47 PM EDT AGE/SEX: 28 years / Male INDICATIONS: ORIF right acetabulum. CLINICAL DATA: This is the patient's initial encounter. Patient reports that signs and symptoms have been present for 1 day and indicates a pain score of Nonresponsive. MEDICAL/SURGICAL HISTORY: Non-responsive. Non-responsive. COMPARISON: No prior exams available for comparison. FINDINGS: 6 spot intraoperative fluoroscopic views are obtained of the pelvis and demonstrate extensive plate a nd screw fixation hardware placement across the right acetabulum as well as a screw traversing the [place] perior right acetabulum and superior pubic ramus. 2 screws overlie the right SI joint. CONCLUSION: Fixation hardware placement across right pelvic fractures. Electronically signed by: Jj Quijano MD 03/10/2018 3:17 PM EDT
--- NOTE | 2018-03-10 15:43 | P.PNNS ---
Subjective Interval history: 03/10: patient was seen this am during rounds. no changes to neuro checks, intubated, sedated. going to OR today with ortho for pelvic surgery. Physical Exam Vital signs: Vital Signs 03/09/18 16:00 03/09/18 18:00 03/09/18 19:54 Temperature 100.4 F H Pulse Rate 118 H 111 H 99 H Respiratory Rate 16 16 Blood Pressure 143/85 H Pulse Oximetry 100 03/09/18 19:57 03/09/18 20:00 03/09/18 22:00 Temperature 100 F H Pulse Rate 114 H 98 H Respiratory Rate 17 16 Blood Pressure 137/74 Pulse Oximetry 100 100 03/09/18 23:57 03/09/18 23:59 03/10/18 00:00 Temperature 100.4 F H Pulse Rate 97 H 117 H Respiratory Rate 17 17 16 Blood Pressure 128/75 Pulse Oximetry 100 03/10/18 01:00 03/10/18 02:00 03/10/18 03:36 Temperature Pulse Rate 90 Respiratory Rate 16 16 Blood Pressure Pulse Oximetry 100 03/10/18 04:00 03/10/18 06:00 03/10/18 07:52 Temperature 99.5 F Pulse Rate 86 85 88 Respiratory Rate 16 16 Blood Pressure 108/67 Pulse Oximetry 03/10/18 08:00 03/10/18 08:17 03/10/18 09:00 Temperature 100.2 F H Pulse Rate 93 H 93 H Respiratory Rate 16 16 Blood Pressure 116/75 Pulse Oximetry 03/10/18 10:00 03/10/18 14:00 03/10/18 14:24 Temperature Pulse Rate 80 81 Respiratory Rate 18 Blood Pressure Pulse Oximetry 100 03/10/18 15:11 Temperature Pulse Rate Respiratory Rate 16 Blood Pressure Pulse Oximetry 100 Intake & Output 03/09/18 03/10/18 03/10/18 18:59 06:59 18:59 Intake Total 2450 / 2450 1050 / 1050 3700 / 3700 Output Total 450 / 450 750 / 750 1200 / 1200 Balance 2000 / 2000 300 / 300 2500 / 2500 Weight 81.5 kg Intake: IV 2450 / 2450 1050 / 1050 2400 / 2400 LR 1000 mL Inj 1,000 ML @ 84 1000 / 1000 1000 / 1000 mls/hr IV.CONT .[id number] [facility] Rx# :[id number] Versed Inj 50 mg In 50 ml @ 2 100 / 100 50 / 50 50 / 50 MG/HR 2 mls/hr IV.CONT TITRATE PRN Rx#:[id number] Ofirmev Inj 1,000 mg In 100 ml 100 / 100 @ 400 mls/hr IV.SIG Q6H PRN Rx# :[id number] LR 1000 mL Inj 1,000 ML @ Wide 1000 / 1000 1000 / 1000 Open IV.SIG BOLUS ONE Rx#: [id number] KCl 40 mEq Premix Inj 40 meq In 100 / 100 100 ml @ 25 mls/hr IV.SIG UNSCH PRN Rx#:[id number] fentaNYL 10 mcg/mL Premix Drip 250 / 250 0 / 0 250 / 250 2,500 mcg In 250 ml @ 50 MCG/HR 5 mls/hr IV.SIG TITRATE PRN Rx #:[id number] Anesthesia Amount 1300 / 1300 Output: Urine 300 / 300 Estimated Blood Loss 1000 / 1000 Urine Amount (Catheter) 350 / 350 350 / 350 200 / 200 200 200 / 200 Indwelling Temp Sensing 350 / 350 350 / 350 Catheter Gastric Drainage 100 / 100 100 / 100 Orogastric Tube 100 / 100 100 / 100 Other: # Bowel Movements 0 Narrative: GENERAL: Intubated SKIN: Warm and dry. Multiple skin abrasions HEAD: Normocephalic, traumatic injuries with dressing EYES: No scleral icterus. No injection or drainage. NECK: Supple, trachea midline. No JVD or lymphadenopathy. CARDIOVASCULAR: Regular rate and rhythm without murmurs, gallops, or rubs. RESPIRATORY: mechanically ventilated GASTROINTESTINAL: Abdomen soft, non-tender, nondistended. MUSCULOSKELETAL: No cyanosis, or edema. BACK: Nontender without obvious deformity. No CVA tenderness. Neuro: sedated. Minimal eye opening. pupils equal. not following commands to motor testing but responds to pain stimuli. - Urinary Catheter Management Indwelling Temp Sensing Catheter Cath placed during this visit: yes Reason for continuing: Other continuation reason Insertion date: 03/07/18 200 Cath placed during this visit: no Assessment and Plan - Plan Impression: young adult male with closed head injury Cervical Spine MRI 03/08/18 00:00 CONCLUSION: Negative MR Cervical Spine non contrast. Head MRI 03/08/18 00:00 CONCLUSION: 1. Parenchymal brain contusion in the left low convexity temporal parietal region with minimal extra-axial blood in the left occipital region. Scattered punctate foci of microhemorrhage and acute axonal injury elsewhere. 2. No evidence of surgical intracranial process. Hip CT 03/08/18 00:00 CONCLUSION: 1. Numerous pelvic fractures are noted as described above. Lumbar Spine MRI 03/08/18 00:00 CONCLUSION: 1. Lumbar spine is normal in appearance. 2. Significant intramuscular edema, and perinephric fluid and dafne psoas fluid seen in the right mid to lower abdomen with incomplete visualization of the patient's known iliac bone fractures. Thoracic Spine MRI 03/08/18 00:00 CONCLUSION: 1. Negative MRI of thoracic spine Chest X-Ray 03/09/18 00:00 CONCLUSION: Patchy parenchymal consolidation developing of the right base. Face CT 03/07/18 17:39 CONCLUSION: 1. Acute fractures involving the right zygomatic arch, squamous portion of the right temporal bone and fracture involving the base of the pterygoid plates on the right. There is opacification of the right sphenoid sinus and small fluid level within left maxillary sinus. Minimal pneumocephalus is noted within the anterior middle cranial fossa on the right. Head CT 03/07/18 17:39 CONCLUSION: 1. No acute intracranial abnormality. 2. There is no acute fracture involving the right zygomatic arch. 3. Subgaleal hematoma along the right frontoparietal skull. 4. Opacification of the right sphenoid sinus is noted. 5. Small fluid level is noted within the left maxillary sinus. Lumbar Spine CT 03/07/18 17:39 CONCLUSION: 1. No acute fracture or spinal listhesis of the lumbar spine. 2. Acute comminuted fracture involving the right iliac bone with widening of the right sacroiliac joint. 3. Tiny 2 mm calcified nonobstructing mid pole left renal calculus. Thoracic Spine CT 03/07/18 17:39 CONCLUSION: 1. No acute fracture or subluxation of the thoracic spine. Plan: MRI Brain, Cervical, Thoracic and lumbar spine reviewed by Dr. Vieyra cont nonsurgical management cont neuro checks q hour, sedation weaning cont critical care management to OR today with ortho for pelvic fixation Procedures - Arterial Line Size (Gauge): 18
[2018-03-10 15:53] LABS: Anion Gap 7 meq/L (5-15); Blood Urea Nitrogen 12 mg/dL (7-18); Calcium 7.8 mg/dL (8.5-10.1); Carbon Dioxide 25.4 meq/L (21.0-32.0); Chloride 117 meq/L (98-107); Glomerular Filtration Rate Greater Than 89 mL/min (>89); Glucose,Random 86 mg/dL (74-106); Potassium 4.1 meq/L (3.5-5.1); Sodium 149 meq/L (136-145)
--- NOTE | 2018-03-10 17:09 | OTSOAPIP ---
TIME SESSION COMPLETED: 1600 TREATMENT TIME: 0 MINS. CHART REVIEWED. PATIENT ADMITTED WITH RIGHT ACETABULAR FRACTURE TRANSVERSE WITH POSTERIOR WALL AND MULTIPLE PELVIC FRACTURES WITH RIGHT SACROILIAC JOINT DISRUPTION PATIENT NOW S/P OPEN REDUCTION INTERNAL FIXATION OF RIGHT ACETABULUM, REDUCTION OF PELVIC RING FRACTURES AND PLACEMENT OF RIGHT ILIOSACRAL SCREWS (EVELYN PATHAK MD) RECEIVED ORDERS FROM DR PATHAK FOR PENDULUM EXCISES TO OPERATIVE SHOULDER, NO ACTIVE RANGE OF MOTION, NON-WEIGTH BEARING TO OPERATIVE ARM ATTEMPTED TO SEE PATIENT HOWEVER PATIENT WAS BEING PREPARED TO BE TRANSFER TO ANOTHER UNIT PLAN: WILL SEE PATIENT NEXT TREATMENT DAY Therapist: Shanae Carreon Signature on file
[2018-03-10] MEDS: ceFAZolin Inj 2,000 MG in Sodium Chlor 0.9% Inj 80 ML IV.SIG SCH (17:31)
[2018-03-10] MEDS: Vancomycin Inj 1,500 MG in Sodium Chlor 0.9% Inj 500 ML IV.SIG SCH (18:32)
[2018-03-10] MEDS: Pantoprazole Inj 40 MG Vial IV.PUSH SCH (21:06)
[2018-03-11] MEDS: Oral Hygiene Kit OROPHARYNG SCH ×4 (02:11→15:29)
[2018-03-11] MEDS: ceFAZolin Inj 2,000 MG in Sodium Chlor 0.9% Inj 80 ML IV.SIG SCH ×3 (02:18→18:45)
[2018-03-11] MEDS: Vancomycin Inj 1,500 MG in Sodium Chlor 0.9% Inj 500 ML IV.SIG SCH ×2 (05:21→18:46)
[2018-03-11] MEDS: Propofol 1000 mg/100 ml Inj 1,000 MG/100 ML BOTTLE IV.CONT PRN (05:31)
[2018-03-11 06:17] LABS: Baso % (Auto) 0.2 % (0.0-2.0); Hematocrit 26.3 % (39.0-51.0); Hemoglobin 8.9 gm/dL (13.0-17.0); Lymph # (Auto) 0.6 th/mm3 (1.0-4.8); Lymph % (Auto) 4.8 % (9.0-44.0); Mean Corpuscular HGB Conc 34.1 % (32.0-36.0); Mean Corpuscular Hemoglobin 32.5 pg (27.0-34.0); Mean Corpuscular Volume 95.3 fL (80.0-100.0); Mean Platelet Volume 8.7 fL (7.0-11.0); Mono # (Auto) 0.6 th/mm3 (0.0-0.9); Mono % (Auto) 4.9 % (0.0-8.0); Neut % (Auto) 90.1 % (16.0-70.0); Platelet Count 163 th/mm3 (150-450); Red Blood Count 2.76 mil/mm3 (4.50-5.90); Red Cell Distribution Width 14.9 % (11.6-17.2); White Blood Count 12.3 th/mm3 (4.0-11.0)
[2018-03-11 06:35] LABS: Anion Gap 12 meq/L (5-15); Blood Urea Nitrogen 9 mg/dL (7-18); Calcium 7.9 mg/dL (8.5-10.1); Carbon Dioxide 25.5 meq/L (21.0-32.0); Chloride 110 meq/L (98-107); Glomerular Filtration Rate Greater Than 89 mL/min (>89); Glucose,Random 127 mg/dL (74-106); Potassium 3.5 meq/L (3.5-5.1); Sodium 147 meq/L (136-145)
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
[2018-03-11] MEDS: Senna/Docusate Sodium 8.6/50 MG Tablet PO SCH ×2 (09:00→21:34)
[2018-03-11] MEDS: Indomethacin 75 MG ER Capsule PO SCH (09:00)
[2018-03-11] MEDS: Chlorhexidine 0.12% Oral Kit 15 ML UDC OROPHARYNG SCH ×2 (09:01→21:33)
--- NOTE | 2018-03-11 09:13 | P.PNNS ---
Subjective Interval history: No acute issues overnight. One dose of BP meds held for mild hypotension. Neurologic exam has remained stable. Physical Exam Vital signs: Vital Signs 03/10/18 10:00 03/10/18 14:00 03/10/18 14:24 Temperature Pulse Rate 80 81 Respiratory Rate 18 Blood Pressure Pulse Oximetry 100 03/10/18 15:11 03/10/18 16:00 03/10/18 18:00 Temperature 98.1 F Pulse Rate 82 81 Respiratory Rate 16 15 Blood Pressure 108/67 Pulse Oximetry 100 100 03/10/18 20:00 03/10/18 20:33 03/10/18 20:34 Temperature 97.9 F Pulse Rate 72 75 Respiratory Rate 16 16 16 Blood Pressure 110/68 Pulse Oximetry 100 100 03/10/18 22:00 03/11/18 00:00 03/11/18 00:26 Temperature 99 F Pulse Rate 74 76 72 Respiratory Rate 16 16 Blood Pressure 118/74 Pulse Oximetry 100 03/11/18 00:27 03/11/18 02:00 03/11/18 04:00 Temperature 98.6 F Pulse Rate 84 87 Respiratory Rate 16 16 Blood Pressure 118/78 Pulse Oximetry 100 03/11/18 04:10 03/11/18 06:00 03/11/18 08:00 Temperature Pulse Rate 87 87 Respiratory Rate 16 Blood Pressure Pulse Oximetry 100 03/11/18 08:17 Temperature Pulse Rate 87 Respiratory Rate 16 Blood Pressure Pulse Oximetry 100 Intake & Output 03/10/18 03/11/18 03/11/18 18:59 06:59 18:59 Intake Total 4800 / 4800 1471 / 1471 1000 / 1000 Output Total 2024 / 2024 1650 / 1650 Balance 2775 / 2775 -179 / -179 1000 / 1000 Weight 83.4 kg Intake: IV 3500 / 3500 1065 / 1065 1000 / 1000 LR 1000 mL Inj 1,000 ML @ 125 1000 / 1000 1000 / 1000 mls/hr IV.CONT .Q8H [facility] Rx#: [id number] Versed Inj 50 mg In 50 ml @ 2 50 / 50 MG/HR 2 mls/hr IV.CONT TITRATE PRN Rx#:[id number] Diprivan 1000 mg/100 ml Inj 1, 200 / 200 000 mg In 100 ml @ 5 MCG/KG/MIN 2.445 mls/hr IV.CONT TITRATE PRN Rx#:[id number] LR 1000 mL Inj 1,000 ML @ Wide 1000 / 1000 Open IV.SIG BOLUS ONE Rx#: [id number] KCl 40 mEq Premix Inj 40 meq In 100 / 100 100 ml @ 25 mls/hr IV.SIG UNSCH PRN Rx#:[id number] Vancomycin Inj 1,500 MG In NS 515 / 515 Inj 500 ML @ 250 mls/hr IV.SIG Q12H [facility] Rx#:[id number] Ancef Inj 2,000 MG In NS Inj 80 100 / 100 100 / 100 ML @ 200 mls/hr IV.SIG Q8H [facility] Rx#:[id number] fentaNYL 10 mcg/mL Premix Drip 250 / 250 250 / 250 2,500 mcg In 250 ml @ 50 MCG/HR 5 mls/hr IV.SIG TITRATE PRN Rx #:[id number] Tube Feeding 346 / 346 Tube Irrigant 60 / 60 Anesthesia Amount 1300 / 1300 Output: Estimated Blood Loss 1000 / 1000 Urine Amount (Catheter) 1025 / 1025 1650 / 1650 200 200 / 200 Indwelling Temp Sensing 825 / 825 1650 / 1650 Catheter - Routine Neurological Exam Awakens to voice. Intermittently responds to his mother. Does not distinctly follow commands for me, but attempts to localize with bilateral upper extremities, and is agitated/moving significantly throughout. Requiring restraints. Pupils approximately equal, but difficult to formally assess due to agitation. - Urinary Catheter Management Indwelling Temp Sensing Catheter Cath placed during this visit: yes Reason for continuing: Other continuation reason Insertion date: 03/07/18 200 Cath placed during this visit: no Assessment and Plan - Plan Impression: young adult male with closed head injury Cervical Spine MRI 03/08/18 00:00 CONCLUSION: Negative MR Cervical Spine non contrast. Head MRI 03/08/18 00:00 CONCLUSION: 1. Parenchymal brain contusion in the left low convexity temporal parietal region with minimal extra-axial blood in the left occipital region. Scattered punctate foci of microhemorrhage and acute axonal injury elsewhere. 2. No evidence of surgical intracranial process. Hip CT 03/08/18 00:00 CONCLUSION: 1. Numerous pelvic fractures are noted as described above. Lumbar Spine MRI 03/08/18 00:00 CONCLUSION: 1. Lumbar spine is normal in appearance. 2. Significant intramuscular edema, and perinephric fluid and dafne psoas fluid seen in the right mid to lower abdomen with incomplete visualization of the patient's known iliac bone fractures. Thoracic Spine MRI 03/08/18 00:00 CONCLUSION: 1. Negative MRI of thoracic spine Chest X-Ray 03/09/18 00:00 CONCLUSION: Patchy parenchymal consolidation developing of the right base. Face CT 03/07/18 17:39 CONCLUSION: 1. Acute fractures involving the right zygomatic arch, squamous portion of the right temporal bone and fracture involving the base of the pterygoid plates on the right. There is opacification of the right sphenoid sinus and small fluid level within left maxillary sinus. Minimal pneumocephalus is noted within the anterior middle cranial fossa on the right. Head CT 03/07/18 17:39 CONCLUSION: 1. No acute intracranial abnormality. 2. There is no acute fracture involving the right zygomatic arch. 3. Subgaleal hematoma along the right frontoparietal skull. 4. Opacification of the right sphenoid sinus is noted. 5. Small fluid level is noted within the left maxillary sinus. Lumbar Spine CT 03/07/18 17:39 CONCLUSION: 1. No acute fracture or spinal listhesis of the lumbar spine. 2. Acute comminuted fracture involving the right iliac bone with widening of the right sacroiliac joint. 3. Tiny 2 mm calcified nonobstructing mid pole left renal calculus. Thoracic Spine CT 03/07/18 17:39 CONCLUSION: 1. No acute fracture or subluxation of the thoracic spine. Plan: MRI Brain, Cervical, Thoracic and lumbar spine reviewed by Dr. Vieyra cont nonsurgical management cont neuro checks q hour cont critical care management; CC team planning for CPAP trial this morning, possible extubation Procedures - Arterial Line Size (Gauge): 18
[2018-03-11] MEDS: fentaNYL 10 mcg/mL Premix Drip 2,500 MCG/250 ML BAG IV.SIG PRN (10:45)
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
[2018-03-11] MEDS: Enoxaparin Inj 30 MG/0.3 ML Syringe SQ SCH ×2 (13:24→21:33)
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
--- NOTE | 2018-03-11 15:33 | P.PNOP ---
Subjective Interval history: Right acetabulum fracture and right sacroiliac joint open reduction internal fixation. POD 1 Left pubic rami fracture nonoperative treatment Pt intubated but awake and responds well to questions/stimuli. Family at bedside. Pain appears well controlled. Physical Exam Vital signs: Vital Signs 03/10/18 16:00 03/10/18 18:00 03/10/18 20:00 Temperature 98.1 F 97.9 F Pulse Rate 82 81 72 Respiratory Rate 15 16 Blood Pressure 108/67 110/68 Pulse Oximetry 100 100 03/10/18 20:33 03/10/18 20:34 03/10/18 22:00 Temperature Pulse Rate 75 74 Respiratory Rate 16 16 Blood Pressure Pulse Oximetry 100 03/11/18 00:00 03/11/18 00:26 03/11/18 00:27 Temperature 99 F Pulse Rate 76 72 Respiratory Rate 16 16 16 Blood Pressure 118/74 Pulse Oximetry 100 03/11/18 02:00 03/11/18 04:00 03/11/18 04:10 Temperature 98.6 F Pulse Rate 84 87 Respiratory Rate 16 16 Blood Pressure 118/78 Pulse Oximetry 100 100 03/11/18 06:00 03/11/18 08:00 03/11/18 08:17 Temperature 98.2 F Pulse Rate 87 87 87 Respiratory Rate 17 16 Blood Pressure 123/79 Pulse Oximetry 100 100 03/11/18 09:00 03/11/18 10:00 03/11/18 12:00 Temperature 99.0 F Pulse Rate 89 89 95 H Respiratory Rate 18 Blood Pressure 150/95 H Pulse Oximetry 99 03/11/18 12:18 03/11/18 14:00 Temperature Pulse Rate 75 85 Respiratory Rate 18 Blood Pressure Pulse Oximetry 97 Intake & Output 03/10/18 03/11/18 03/11/18 18:59 06:59 18:59 Intake Total 4800 / 4800 1471 / 1471 1765 / 1765 Output Total 2024 / 2024 1650 / 1650 Balance 2775 / 2775 -179 / -179 1765 / 176 Weight 83.4 kg Intake: IV 3500 / 3500 1065 / 1065 1765 / 1765 LR 1000 mL Inj 1,000 ML @ 125 1000 / 1000 1000 / 1000 mls/hr IV.CONT .Q8H [facility] Rx#: [id number] Versed Inj 50 mg In 50 ml @ 2 50 / 50 MG/HR 2 mls/hr IV.CONT TITRATE PRN Rx#:[id number] Diprivan 1000 mg/100 ml Inj 1, 200 / 200 000 mg In 100 ml @ 5 MCG/KG/MIN 2.445 mls/hr IV.CONT TITRATE PRN Rx#:[id number] LR 1000 mL Inj 1,000 ML @ Wide 1000 / 1000 Open IV.SIG BOLUS ONE Rx#: [id number] KCl 40 mEq Premix Inj 40 meq In 100 / 100 100 ml @ 25 mls/hr IV.SIG UNSCH PRN Rx#:[id number] Vancomycin Inj 1,500 MG In NS 515 / 515 515 / 515 Inj 500 ML @ 250 mls/hr IV.SIG Q12H [facility] Rx#:[id number] Ancef Inj 2,000 MG In NS Inj 80 100 / 100 100 / 100 ML @ 200 mls/hr IV.SIG Q8H [facility] Rx#:[id number] fentaNYL 10 mcg/mL Premix Drip 250 / 250 250 / 250 250 / 250 2,500 mcg In 250 ml @ 50 MCG/HR 5 mls/hr IV.SIG TITRATE PRN Rx #:[id number] Tube Feeding 346 / 346 Tube Irrigant 60 / 60 Anesthesia Amount 1300 / 1300 Output: Estimated Blood Loss 1000 / 1000 Urine Amount (Catheter) 1025 / 1025 1650 / 1650 200 200 / 200 Indwelling Temp Sensing 825 / 825 1650 / 1650 Catheter Narrative: Right lower extremity: Clean dry dressings intact. Bacitracin over the road rash. Intact distal pulses good capillary refill 1+ pedal edema, NVI - Urinary Catheter Management Indwelling Temp Sensing Catheter Cath placed during this visit: yes Reason for continuing: Other continuation reason Insertion date: 03/07/18 200 Cath placed during this visit: no Results - Labs CBC & Chem 7: 03/11/18 05:45 03/11/18 05:45 Laboratory Results - last 24 hr 03/09/18 03/10/18 03/10/18 18:30 14:30 21:50 WBC RBC Hgb Hct MCV MCH MCHC RDW Plt Count MPV Neut % (Auto) Lymph % (Auto) Stanley % (Auto) Eos % (Auto) Baso % (Auto) Neut # (Auto) Lymph # (Auto) Stanley # (Auto) Eos # (Auto) Baso # (Auto) WBC Differential Differential Comment Sodium 149 H Potassium 4.1 D 4.0 Chloride 117 H Carbon Dioxide 25.4 Anion Gap 7 BUN 12 Creatinine 0.65 Estimated GFR Greater than 89 Random Glucose 86 Calcium 7.8 L Blood Type O Positive Antibody Screen Negative MTS Gel Crossmatch See Detail Bld Prod Order Comment 03/11/18 03/11/18 05:45 05:45 WBC 12.3 H RBC 2.76 L Hgb 8.9 L Hct 26.3 L MCV 95.3 MCH 32.5 MCHC 34.1 RDW 14.9 Plt Count 163 MPV 8.7 Neut % (Auto) 90.1 H Lymph % (Auto) 4.8 L Stanley % (Auto) 4.9 Eos % (Auto) 0.0 Baso % (Auto) 0.2 Neut # (Auto) 11.0 H Lymph # (Auto) 0.6 L Stanley # (Auto) 0.6 Eos # (Auto) 0.0 Baso # (Auto) 0.0 WBC Differential . Differential Comment Auto diff final Sodium 147 H Potassium 3.5 Chloride 110 H Carbon Dioxide 25.5 Anion Gap 12 BUN 9 Creatinine 0.65 Estimated GFR Greater than 89 Random Glucose 127 H Calcium 7.9 L Blood Type Antibody Screen MTS Gel Crossmatch Bld Prod Order Comment - Imaging Impressions Chest X-Ray 03/10/18 00:00 CONCLUSION: Satisfactory position of endotracheal tube as above. Left lower lobe atelectasis versus pneumonia. This is new when compared with the prior exam. Pelvis X-Ray 03/10/18 00:00 CONCLUSION: Fixation hardware placement across right pelvic fractures. Chest X-Ray 03/11/18 15:03 CONCLUSION: Placement of NG tube otherwise no significant change in left lung base infiltrate. - Procedures Right acetabulum fracture and right sacroiliac joint open reduction internal fixation. 03/10/18 Assessment and Plan - Ortho Post Op Day # 1 - Problem List (1) Closed right acetabular fracture Code(s): S32.401A - Unspecified fracture of right acetabulum, initial encounter for closed fracture Status: Acute (2) Closed pelvic fracture Code(s): S32.9XXA - Fracture of unspecified parts of lumbosacral spine and pelvis, initial encounter for closed fracture Status: Acute Qualifiers: Encounter type: initial encounter Pelvic bone location: unspecified part of pelvis Qualified Code(s): S32.9XXA - Fracture of unspecified parts of lumbosacral spine and pelvis, initial encounter for closed fracture - Assessment and Plan Right acetabulum fracture and right sacroiliac joint open reduction internal fixation. POD 1 Left pubic rami fracture nonoperative treatment PT -toe-touch weightbearing right lower extremity with no active leg lifts or quad sets Left lower extremity 50% weightbearing for transfers on SCDs and THOR hose for DVT prophylaxis Radiation scheduled either today or tomorrow to help avoid significant heterotrophic ossification Daily dressing changes beginning POD 2 with Xeroform over incisions. Bacitracin over all road rash Continue critical care Ortho will continue to monitor
[2018-03-11] MEDS: Morphine Inj 4 MG/ML Vial IV.PUSH PRN (19:25)
[2018-03-11] MEDS: Pantoprazole Inj 40 MG Vial IV.PUSH SCH (21:33)
[2018-03-12] MEDS: Oral Hygiene Kit OROPHARYNG SCH ×4 (03:06→15:28)
[2018-03-12] MEDS: ceFAZolin Inj 2,000 MG in Sodium Chlor 0.9% Inj 80 ML IV.SIG SCH ×3 (03:07→18:18)
[2018-03-12] MEDS: Morphine Inj 4 MG/ML Vial IV.PUSH PRN ×2 (04:51→18:40)
[2018-03-12] MEDS: Vancomycin Inj 1,500 MG in Sodium Chlor 0.9% Inj 500 ML IV.SIG SCH (05:38)
[2018-03-12] MEDS: Chlorhexidine Gluconate 2% 1 Pack (2 Cloths) TOPICAL SCH ×3 (05:39→09:07)
[2018-03-12] MEDS ORDERED: Pharmacy Ordered Lab Info OTHER ONE (05:45)
[2018-03-12 05:58] LABS: Baso % (Auto) 0.3 % (0.0-2.0); Eos # (Auto) 0.1 th/mm3 (0.0-0.4); Eos % (Auto) 1.1 % (0.0-4.0); Hematocrit 24.5 % (39.0-51.0); Hemoglobin 8.3 gm/dL (13.0-17.0); Lymph # (Auto) 1.6 th/mm3 (1.0-4.8); Lymph % (Auto) 13.9 % (9.0-44.0); Mean Corpuscular Hemoglobin 32.3 pg (27.0-34.0); Mean Platelet Volume 8.8 fL (7.0-11.0); Mono % (Auto) 8.5 % (0.0-8.0); Neut # (Auto) 8.8 th/mm3 (1.8-7.7); Neut % (Auto) 76.2 % (16.0-70.0); Platelet Count 198 th/mm3 (150-450); Red Blood Count 2.58 mil/mm3 (4.50-5.90); Red Cell Distribution Width 14.8 % (11.6-17.2); White Blood Count 11.5 th/mm3 (4.0-11.0)
[2018-03-12 06:28] LABS: Anion Gap 11 meq/L (5-15); Blood Urea Nitrogen 14 mg/dL (7-18); Calcium 7.5 mg/dL (8.5-10.1); Carbon Dioxide 25.7 meq/L (21.0-32.0); Chloride 111 meq/L (98-107); Glomerular Filtration Rate Greater Than 89 mL/min (>89); Glucose,Random 82 mg/dL (74-106); Potassium 3.1 meq/L (3.5-5.1); Sodium 148 meq/L (136-145)
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
[2018-03-12] MEDS ORDERED: Magnesium Citrate Liq 300 ML Bottle PO ONE (08:30)
[2018-03-12] MEDS: Chlorhexidine 0.12% Oral Kit 15 ML UDC OROPHARYNG SCH ×2 (08:50→20:53)
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
[2018-03-12] MEDS: Senna/Docusate Sodium 8.6/50 MG Tablet PO SCH ×2 (09:31→20:51)
[2018-03-12] MEDS: Indomethacin 75 MG ER Capsule PO SCH (09:31)
[2018-03-12] MEDS: Potassium Chlor 40 mEq Premix 40 MEQ/100 ML PIGGYBACK IV.SIG PRN (09:32)
[2018-03-12] MEDS: Enoxaparin Inj 30 MG/0.3 ML Syringe SQ SCH ×2 (09:32→20:50)
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
[2018-03-12] MEDS: Pantoprazole Inj 40 MG Vial IV.PUSH SCH (20:50)
[2018-03-13] MEDS: Oral Hygiene Kit OROPHARYNG SCH ×2 (02:06→06:03)
[2018-03-13] MEDS: ceFAZolin Inj 2,000 MG in Sodium Chlor 0.9% Inj 80 ML IV.SIG SCH (02:30)
[2018-03-13] MEDS ORDERED: Acetaminophen 325 MG Tablet PO PRN (06:03)
[2018-03-13] MEDS: Indomethacin 75 MG ER Capsule PO SCH (08:06)
[2018-03-13] MEDS: Enoxaparin Inj 30 MG/0.3 ML Syringe SQ SCH ×2 (08:06→22:01)
[2018-03-13] MEDS: Senna/Docusate Sodium 8.6/50 MG Tablet PO SCH ×3 (08:06→22:10)
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
[2018-03-13 13:27] LABS: Albumin 2.4 g/dL (3.4-5.0)
[2018-03-13 13:28] LABS: Total Protein 6.2 g/dL (6.4-8.2)
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
[2018-03-14 06:47] LABS: Baso % (Auto) 0.5 % (0.0-2.0); Eos # (Auto) 0.1 th/mm3 (0.0-0.4); Eos % (Auto) 1.3 % (0.0-4.0); Hematocrit 30.3 % (39.0-51.0); Hemoglobin 10.8 gm/dL (13.0-17.0); Lymph # (Auto) 1.4 th/mm3 (1.0-4.8); Lymph % (Auto) 13.1 % (9.0-44.0); Mean Corpuscular HGB Conc 35.7 % (32.0-36.0); Mean Corpuscular Volume 92.4 fL (80.0-100.0); Mean Platelet Volume 8.4 fL (7.0-11.0); Mono # (Auto) 1.3 th/mm3 (0.0-0.9); Mono % (Auto) 12.2 % (0.0-8.0); Neut # (Auto) 7.6 th/mm3 (1.8-7.7); Neut % (Auto) 72.9 % (16.0-70.0); Platelet Count 330 th/mm3 (150-450); Red Blood Count 3.28 mil/mm3 (4.50-5.90); Red Cell Distribution Width 14.4 % (11.6-17.2); White Blood Count 10.4 th/mm3 (4.0-11.0)
[2018-03-14 06:52] LABS: Albumin 2.3 g/dL (3.4-5.0); Anion Gap 10 meq/L (5-15); Aspartate Aminotransferase 51 U/L (15-37); Blood Urea Nitrogen 14 mg/dL (7-18); Calcium 7.9 mg/dL (8.5-10.1); Chloride 104 meq/L (98-107); Glomerular Filtration Rate Greater Than 89 mL/min (>89); Glucose,Random 107 mg/dL (74-106); Potassium 3.1 meq/L (3.5-5.1); Sodium 140 meq/L (136-145)
[2018-03-14 06:53] LABS: Alanine Aminotransferase 73 U/L (12-78)
[2018-03-14 06:56] LABS: Alkaline Phosphatase 141 U/L (45-117); Total Protein 5.9 g/dL (6.4-8.2)
[2018-03-14 08:21] LABS: Lymphocytes 12 % (9-44); Monocytes 14 % (0-8); Myelocytes 5 % (0-0)
[2018-03-14 08:22] LABS: Platelet Estimate Normal (Normal); Platelet Morphology Normal (Normal)
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
[2018-03-14] MEDS: Enoxaparin Inj 30 MG/0.3 ML Syringe SQ SCH ×2 (08:33→22:59)
[2018-03-14] MEDS: Indomethacin 75 MG ER Capsule PO SCH (08:34)
[2018-03-14] MEDS: Senna/Docusate Sodium 8.6/50 MG Tablet PO SCH ×2 (08:34→22:59)
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
[2018-03-14] MEDS: Morphine Inj 4 MG/ML Vial IV.PUSH PRN (12:22)
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
--- NOTE | 2018-03-14 14:01 | P.DCO ---
- Physical Therapy Order: Evaluate and treat, Improve ambulation, Strength and gait training - Occupational Therapy Order: Evaluate and treat, Improve ADL, Gross motor coordination, Fine motor coordination - Home Health Nursing Order: Medical education, Signs/symptoms of disease process, Medication education-adverse effect, Nursing assessment with vital signs - Certification I have seen patient Justin Smith JR on 03/14/18. My clinical findings support the need for the requested home health care services because: Limited mobility due to disease progression, Patient has SOB, Deconditioned with increased weakness, Limited ability to care for self, High risk of falls, Infection with risk of complications I certify that my clinical findings support that this patient is homebound because: Post-op weakness, Unsteady gait/balance, Unsafe to leave home unassisted, Non- ambulatory: confined to bed or chair, Unable to use public transportation
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
[2018-03-15 07:59] VITALS: RESP 14
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
[2018-03-15] MEDS: Enoxaparin Inj 30 MG/0.3 ML Syringe SQ SCH (08:47)
[2018-03-15] MEDS: Indomethacin 75 MG ER Capsule PO SCH (08:47)
[2018-03-15] MEDS: Senna/Docusate Sodium 8.6/50 MG Tablet PO SCH (08:47)
--- NOTE | 2018-03-15 10:23 | CT ---
EXAM DATE: 03/08/2018 9:30 AM EDT AGE/SEX: 28 years / Male INDICATIONS: Right hip fracture CLINICAL DATA: This is the patient's initial encounter. Patient reports that signs and symptoms have been present for 1 day and indicates a pain score of Nonresponsive. MEDICAL/SURGICAL HISTORY: Non-responsive. Non-responsive. RADIATION DOSE: . CTDI (mGy) ; Reconstructed from previous dataset, no dose [place] [facility] [place]/07/2018. . TECHNIQUE: Volumetric scanning was performed using a multi-row detector CT scanner during bolus infu jaci of ml nonionic water-soluble contrast as a . The data was post processed with a variety of visu alization algorithms including full volume maximum intensity projection, multi-planar sliding thin sl ab reformation, curved planar reformation, and surface rendering techniques. Using automated exposur e control and adjustment of the mA and/or kV according to patient size, radiation dose was kept as lo w as reasonably achievable to obtain optimal diagnostic quality images. DICOM format image data is a vailable electronically for review and comparison. FINDINGS: 3-D volume rendered reconstructed images through the right hip demonstrate comminuted fracture of the acetabulum roof, anterior and posterior columns. In addition there is a displaced fracture of the ri ght iliac bone adjacent to the sacroiliac joint. CONCLUSION: 1. Right iliac and acetabular fractures are noted. Electronically signed by: Jj Quijano MD 03/15/2018 10:21 AM EDT
[2018-03-15 12:03] VITALS: BP 114/70; TEMP 98.4; O2SAT 98
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
[2018-03-15 12:41] VITALS: PULSE 82
== END 2018-03-15 16:24 | disposition home health service (06) ==
LOC: NEPI 17:30 → NEDA 18:49 → EDBD 18:49 → N03 19:00 → N05 03-12 17:03
PROVIDERS: ADMIT Surgery; ATTEND Surgery
DX: S06.9X9S Unspecified intracranial injury with loss of consciousness of unspecified duration, sequela; V49.9XXA Car occupant (driver) (passenger) injured in unspecified traffic accident, initial encounter; F01.50 Vascular dementia, unspecified severity, without behavioral disturbance, psychotic disturbance, mood disturbance, and anxiety; F19.20 Other psychoactive substance dependence, uncomplicated; S01.01XA Laceration without foreign body of scalp, initial encounter; I95.9 Hypotension, unspecified; G93.89 Other specified disorders of brain; S73.005A Unspecified dislocation of left hip, initial encounter; S60.511A Abrasion of right hand, initial encounter; S02.40EA Zygomatic fracture, right side, initial encounter for closed fracture; S32.451A Displaced transverse fracture of right acetabulum, initial encounter for closed fracture; S01.81XA Laceration without foreign body of other part of head, initial encounter; S06.6X9A Traumatic subarachnoid hemorrhage with loss of consciousness of unspecified duration, initial encounter; T79.4XXA Traumatic shock, initial encounter; Y92.410 Unspecified street and highway as the place of occurrence of the external cause; E87.0 Hyperosmolality and hypernatremia; S60.512A Abrasion of left hand, initial encounter; R58 Hemorrhage, not elsewhere classified; R40.2431 Glasgow coma scale score 3-8, in the field [EMT or ambulance]; S32.592A Other specified fracture of left pubis, initial encounter for closed fracture; E86.1 Hypovolemia; T14.8XXA Other injury of unspecified body region, initial encounter; S32.301A Unspecified fracture of right ilium, initial encounter for closed fracture; S32.591A Other specified fracture of right pubis, initial encounter for closed fracture; R00.0 Tachycardia, unspecified; S37.812A Contusion of adrenal gland, initial encounter; S36.116A Major laceration of liver, initial encounter; J96.00 Acute respiratory failure, unspecified whether with hypoxia or hypercapnia; S30.0XXA Contusion of lower back and pelvis, initial encounter; S04.011A Injury of optic nerve, right eye, initial encounter; S02.19XA Other fracture of base of skull, initial encounter for closed fracture; Z78.1 Physical restraint status